=== PATIENT | male | born 2000 | race Caucasian/White ===

== ENCOUNTER 2018-05-07 12:12 | Emergency (ER) | payer OTHER ==
[~2018-05-07] VITALS: Ht 182.9 cm; Wt 66.2 kg
[2018-05-07 12:47] VITALS: BP 104/56
--- NOTE | 2018-05-07 12:47 | NUR ---
PATIENT AMBULATED TO BED # 10
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
--- NOTE | 2018-05-07 13:41 | NUR ---
Patient discharged with v/s stable. Written and verbal after care instructions given and explained. Patient verbalized understanding. Ambulatory with steady gait. All questions addressed prior to discharge. Advised to follow up with PMD.
[2018-05-07 13:42] VITALS: BP 107/69
== END 2018-05-07 13:41 | disposition home or self-care (01) ==
LOC: MED 12:12
DX: S42.001A Fracture of unspecified part of right clavicle, initial encounter for closed fracture (principal); V89.2XXA Person injured in unspecified motor-vehicle accident, traffic, initial encounter; Y93.89 Activity, other specified; Y92.89 Other specified places as the place of occurrence of the external cause; Y99.8 Other external cause status
CPT/HCPCS: 99283